=== PATIENT | male | born 1970 | race Caucasian/White ===

== ENCOUNTER 2018-06-14 08:37 | Outpatient (CLI) | payer OTHER | END 2018-06-14 09:00 | disposition home or self-care (01) | LOC: LAB 08:37 | DX: R07.89 Other chest pain (principal); D68.8 Other specified coagulation defects; E78.2 Mixed hyperlipidemia; N39.0 Urinary tract infection, site not specified; I10 Essential (primary) hypertension ==

== ENCOUNTER 2024-08-08 01:55 | Emergency (ER) | payer OTHER ==
[~2024-08-08] VITALS: Ht 172.7 cm; Wt 104.3 kg
[~2024-08-08 01:55] MED LIST: AMLODIPINE-OLM1 EAC3 PO; BENZONATATE200 M1 PO; CARDURA XL4 MG PO; ENALAPRIL MALEA10 MG PO; EZALLOR SPRINKL20 MG PO; EZETIMIBE10 MG PO; FARXIGA10 MG PO; FENOFIBRATE150 MG PO; HYDROCHLOROTHIA25 MG PO; HYDRODIURIL12.5 MG PO; JANUMET XR 1001 EACH PO; KAPSPARGO SPRI200 MG PO; KLOR-CON8 MEQ PO; LEVOFLOXACIN750 MG PO; POM (MEDICAMENTO EN PO; ROGAINE60 GM; ROGAINE60 GM PO; TOPROL XL25 M1 PO; XOPENEX CO1.25 MG/0. IH
[2024-08-08 02:17] VITALS: BP 149/78; O2SAT 99
[2024-08-08] MEDS ORDERED: GUAIFENESIN 200 MG/10 ML BLIST.PACK PO STA (03:00)
[2024-08-08] MEDS ORDERED: DIPHENHYDRAMINE HCL 12.5 MG/5 ML BLIST.PACK PO STA (03:00)
[2024-08-08] MEDS ORDERED: ALBUTEROL SULFATE 3 ML/2.5 MG AMPUL.NEB IH SCH (03:00)
[2024-08-08 03:54] LABS: HEMATOCRIT 40.2 % (39.0-48.0); HEMOGLOBIN 14.4 g/dL (13-16.00); MEAN CELL VOLUME 93.4 fL (80.0-100.00); MEAN CORPUSCULAR HEMOGLOBIN 33.5 pg (27.00-32.0); MEAN CORPUSCULAR HGB CONC 35.9 g/dl (32.0-36.0); PLATELET COUNT 190 K/uL (150-450); RED BLOOD COUNT 4.31 M/uL (4.00-6.00); RED CELL DISTRIBUTION WIDTH 14.1 % (11.5-14.5)
[2024-08-08] MEDS ORDERED: ALBUTEROL2.5 MG/3 M IH (05:44)
[2024-08-08] MEDS ORDERED: BUDESONIDE0.5 MG/2 M IH (05:44)
[2024-08-08] MEDS ORDERED: ZYNCOF 20-400120 ML PO (05:44)
[2024-08-08] MEDS ORDERED: ZITHROMAX500 MG PO (05:44)
== END 2024-08-08 05:53 ==
LOC: ER 01:57
PROVIDERS: General Practice
DX: J40 Bronchitis, not specified as acute or chronic (principal); R05.8 Other specified cough; R09.81 Nasal congestion; Z88.8 Allergy status to other drugs, medicaments and biological substances; Z20.822 Contact with and (suspected) exposure to COVID-19